=== PATIENT | male | born 1975 | race Caucasian/White ===

== ENCOUNTER → 2022-07-09 01:05 | Outpatient (CLI) | payer MEDICAID, SELFPAY ==
--- NOTE | 2022-07-09 07:00 | DI.RAD_ITS ---
Exam(s) XR CHEST 2V PA LATERAL EXAM: XR CHEST 2V PA LATERAL CLINICAL HISTORY: Worsening COUGH, multiple meds not working, asthma/smokeR,R05.9 TECHNIQUE: 2D digital imaging was performed. COMPARISON: No exams were available for comparison FINDINGS: HEART: Normal size. Aorta: Not dilated. PULMONARY VASCULATURE: Normal. LUNGS: Clear. PLEURAL SPACE: No pleural effusion or pneumothorax. BONE:Unremarkable for age. IMPRESSION: No acute abnormality. DATA REPOSITORY: RADIATION DOSE DELIVERED:
== END ==
PROVIDERS: PCP Nurse Practitioner Family; Visit Provider Nurse Practitioner Family
DX: R05.9 Cough, unspecified (principal)
CPT/HCPCS: 71046

== ENCOUNTER 2022-09-20 00:37 | Emergency (ER) | payer MEDICAID, SELFPAY ==
[2022-09-20 00:41] VITALS: BP 144/96; PULSE 113; RESP 20; O2SAT 96
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
== END 2022-09-20 01:27 | disposition home or self-care (01) ==
PROVIDERS: Emergency Provider Student in an Organized Health Care Education/Training Program; PCP Nurse Practitioner Family
DX: S01.112A Laceration without foreign body of left eyelid and periocular area, initial encounter (principal); J45.909 Unspecified asthma, uncomplicated; Z79.51 Long term (current) use of inhaled steroids; X58.XXXA Exposure to other specified factors, initial encounter
CPT/HCPCS: 12013; 99284; 70450; 70486; 99282

== ENCOUNTER 2022-10-07 01:16 | Outpatient (CLI) | payer MEDICAID, SELFPAY ==
--- NOTE | 2022-10-07 06:45 | DI.US_ITS ---
Exam(s) US RENAL EXAM: US RENAL CLINICAL HISTORY: Worsening symptoms,kidney stone, n20.0. TECHNIQUE: Dobbs scale, color and spectral Doppler were used. COMPARISON: There are no priors for comparison. FINDINGS: Renal size in cm: Right: 9.5. Left: 9.3. Echogenicity: Normal. Hydronephrosis: No. Cyst or mass: No. Nephrolithiasis: No. Other findings: None. Bladder:Normal. Ureteral jets: Right: Visualized and unremarkable. Left: Visualized and unremarkable. Prevoid vol:489 cc Postvoid vol:0 cc Prostate: 34 cc Renal color flow: Symmetric and within normal limits. IMPRESSION: Unremarkable examination. DATA REPOSITORY:
== END 2022-10-07 01:36 ==
LOC: DI 01:16
PROVIDERS: PCP Nurse Practitioner Family; Visit Provider Nurse Practitioner Family
DX: N20.0 Calculus of kidney (principal)
CPT/HCPCS: 76770

== ENCOUNTER 2023-01-30 20:07 | Emergency (ER) | payer MEDICAID, SELFPAY ==
[2023-01-30 20:11] VITALS: BP 122/85; PULSE 112; RESP 24; TEMP 36.9; O2SAT 95
--- NOTE | 2023-01-30 20:14 | W.ED.GENAD ---
Discharge Plan Disposition Patient Disposition: Home Condition: Improving Discharge Details Clinical Impression: Scombroid fish poisoning Primary Care Provider: Jonathan Marshall ED Provider: Gucci Kevin Home Meds and New Rx's Prescriptions: Continued epinephrine 0.3 mg/0.3 mL auto-injector 0.3 mg IM ONCE Qty: 2 1RF Rx Instructions: as a single dose; may repeat once Dulera 100-5 mcg/actuation HFA aerosol inhaler 2 puff inhalation BID Qty: 13 3RF sertraline 100 mg tablet 100 mg PO DAILY Qty: 90 3RF albuterol sulfate [Ventolin HFA] 90 mcg/actuation HFA aerosol inhaler 2 puff inhalation Q6H PRN (Reason: shortness of breath or wheezing) Qty: 8.5 3RF Discharge Instructions Additional Instructions: This is likely related to fish that was present in the clam chowder and is called scombroid poisoning. You may need another couple of doses of diphenhydramine but otherwise should do fine. This is not a true allergic reaction to fish. Please follow-up with primary care next week if you are not improving. Return to the ED for any difficulty breathing, throat swelling, chest pain, abdominal pain, vomiting, other concerns. Medical Decision Making Patient presenting to ED with allergic type reaction which only involves the upper body and face. Does seem improved after diphenhydramine. Still does not feel right but headache has improved, hives have resolved, no longer lightheaded and hot. Symptoms seem to have occurred after eating homemade clam chowder. does not have symptoms but ate much less than her did. Unsure whether there was fish in this claim chowder or not. I suspect that this is scombroid poisoning more than allergic reaction. Will give fluids and Zofran, check basic labs, observe. Patient's labs mostly unremarkable, potassium a little low. Patient's erythema has completely resolved. He is sleeping and feels fine at this point. Vital signs are normal. has not been able to speak to the individual who actually made the clam chowder but other individuals who were there do think there was fish in it. At this point I think the patient is safe for discharge home. May need couple more doses of Benadryl and have discussed this with . Return precautions provided. Lab Data Lab results reviewed: Yes I reviewed the patient's lab results. HPI General Mode of arrival: ambulatory. Date/Time Provider Initiated Documentation: 01/30/23 20:14. Limitations to Documentation: no limitations. Information obtained by: patient and family. HPI Narrative: Patient presents to the ED with acute onset of flushing, redness, hives, headache, nausea after attending a picnic today. He had to leave abruptly because he felt so unwell. did give him Benadryl and he is actually doing better. There was nothing at the picnic that he ate that he has not ate before. The only potential unusual thing was homemade clam chowder. Patient does have anaphylaxis to bee stings but denies being stung and denies any respiratory symptoms. He felt palpitations, lightheadedness, and reports clear hives on the torso and face. Related Data Home Medications Medication Instructions Recorded Confirmed epinephrine 0.3 mg/0.3 mL 0.3 mg (0.3 mL) IM ONCE #2 ea 02/16/22 01/30/23 injection, auto-injector mometasone-formoterol HFA 100 2 puff inhalation BID #13 grams 06/03/22 01/30/23 mcg-5 mcg/actuation aerosol inhaler (Dulera) sertraline 100 mg tablet 100 mg PO DAILY #90 tabs 08/13/22 01/30/23 albuterol sulfate 90 mcg/actuation 2 puff inhalation Q6H PRN 01/25/23 01/30/23 aerosol inhaler (Ventolin HFA) shortness of breath or wheezing #8.5 grams Previous Rx's Medication Instructions Recorded epinephrine 0.3 mg/0.3 mL 0.3 mg (0.3 mL) IM ONCE #2 ea 02/16/22 injection, auto-injector mometasone-formoterol HFA 100 2 puff inhalation BID #13 grams 06/03/22 mcg-5 mcg/actuation aerosol inhaler (Dulera) sertraline 100 mg tablet 100 mg PO DAILY #90 tabs 08/13/22 albuterol sulfate 90 mcg/actuation 2 puff inhalation Q6H PRN 01/25/23 aerosol inhaler (Ventolin HFA) shortness of breath or wheezing #8.5 grams Allergies Allergy/AdvReac Type Severity Reaction Status Date / Time honey bee venom AdvReac Intermediate Uncoded 01/30/23 20:10 General Stated Complaint: Allergic SILVIA: 3 Review of Systems Narrative: Per HPI PFSH All Active Problems (Updated 01/30/23 @ 21:45 by Gucci Kevin MD) Scombroid fish poisoning (Acute) Finger pain (Acute) Lower urinary tract symptoms (LUTS) (Acute) Right shoulder pain (Acute) Tachycardia, paroxysmal (Acute) Shortness of breath on exertion (Acute) Smoker (Acute) 2 pack/day Lower back pain (Acute) Medical History Depression Kidney stone Family History Mother No problems noted. Father , 67 Cancer Heart disease Sister Cancer Depression Daughter Depression Asthma Daughter Depression Maternal Grandfather , 69 Stroke Paternal Grandfather , 50's Stroke Maternal Grandmother , 80's No problems noted. Paternal Grandmother , 30's No problems noted. Social History Smoking/Tobacco Use Status: Current every day Tobacco Type: cigarettes Tobacco: How many years used: 25 Quit status: not considering quitting Second Hand Exposure: Yes Smoking risk assessment performed?: Yes Alcohol Intake: current Alcohol Intake frequency: a few times a week Alcohol type: beer Drug use: Never Substance use type: does not use Caregiver/Support person: Yes Household members: spouse and children Housing: house Communication Needs: Hard of Hearing Do you need help understanding health information?: Often Pets and animals: Yes Pets and animals: dog(s) Sexually active: Yes Do you think of yourself as: straight/heterosexual Current gender identity: male What is your relationship status?: How often do you talk on the phone with friends or family?: three or more times per week How often do you get together with friends or relatives?: three or more times per week How often do you attend nondenominational or mu-ism services?: decline to answer Do you belong to any clubs or organized social groups?: no Panel score (0-1 are the most socially isolated patients): 2 What type of physical activity do you participate in: walking Duration: > 90 minutes/day Frequency: daily Hodan/Congregational: No preference Seatbelt use: never Helmet use: Yes Helmet use: always 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 HEENT: NC/AT. Normal facial exam. Normal OP. Eyes: Normal conjunctiva and sclera. Neck: Supple. Trachea midline. Lungs: Normal respiratory effort. Lungs are clear. Cor: RRR without murmur/gallop. Good radial pulses. GI: Soft. NT/ND. No guarding or rebound. Neuro: A+O x 3. Normal speech, mentation, gait. Cranial nerves II - XII grossly intact. No gross motor or sensory deficit. Ext: No C/C/E. Skin: Warm and dry with blanching non-tender erythema involving upper torso, neck, face. No hives at this time. Course Vital Signs Vital signs: Vital Signs Temperature 98.4 F 01/30/23 20:11 Pulse 112 H 01/30/23 20:11 Respiratory Rate 24 01/30/23 20:11 Blood Pressure 122/85 01/30/23 20:11 Pulse Oximetry 95 01/30/23 20:11 Temperature 98.4 F 01/30/23 20:11 Temperature Source Temporal Artery Scan 01/30/23 20:11 Pulse 112 H 01/30/23 20:11 Respiratory Rate 24 01/30/23 20:11 Blood Pressure 122/85 01/30/23 20:11 Blood Pressure Position Sitting 01/30/23 20:11 Pulse Oximetry 95 01/30/23 20:11 Pain Level 10 01/30/23 20:11 Comment HEADACHE 01/30/23 20:11
[2023-01-30] MEDS: Famotidine 20 MG/2 ML VIAL IVP (20:50)
[2023-01-30] MEDS: Normal Saline 1,000 ML 1000 ML IV (20:51)
[2023-01-30] MEDS: Ondansetron 4 MG/2 ML VIAL IVP (20:51)
[2023-01-30 20:53] LABS: Abs Immature Grans 0.04 10^3/uL (0.0-0.06); Absolute Basophil Count 0.05 10^3/uL (0.0-0.2); Absolute Eosinophil Count 0.19 10^3/uL (0.0-0.7); Absolute Lymphocyte Count 3.28 10^3/uL (1.2-3.4); Absolute Monocyte Count 0.65 10^3/uL (0.1-0.8); Absolute Neutrophil Count 6.25 10^3/uL (1.2-6.7); Basophils % 0.5; Eosinophils % 1.8; HCT 45.6 % (40.0-50.0); HGB 15.7 g/dL (13.5-17.5); Immature Grans % 0.4; Lymphocytes % 31.4; MCH 31.6 pg (27.0-33.0); MCHC 34.4 % (32.0-36.0); MCV 92 fL (80-95); MPV 10.1 fL (8.0-11.0); Monocytes % 6.2; Neutrophils % 59.7; Platelet Count 287 10^3/uL (130-400); RBC 4.97 10^6/uL (4.36-5.78); RDW 13.3 % (11.8-14.1); RDW-SD 45.8 fL; WBC 10.46 10^3/uL (4.4-10.8)
[2023-01-30 21:03] LABS: Anion Gap 11.8 mmol/L (3-11); BUN 11 mg/dL (7-18); CO2 25.2 mmol/L (21.0-32.0); Calcium 9.1 mg/dL (8.5-10.1); Chloride 102 mmol/L (98-107); Glucose 83 mg/dL (74-106); Potassium 3.1 mmol/L (3.5-5.1); Sodium 139 mmol/L (136-145)
[2023-01-30 21:47] VITALS: BP 107/88; PULSE 81; RESP 16; O2SAT 97
== END 2023-01-30 21:52 | disposition home or self-care (01) ==
PROVIDERS: Emergency Provider Emergency Medicine; PCP Nurse Practitioner Family
DX: T61.11XA Scombroid fish poisoning, accidental (unintentional), initial encounter (principal); L50.0 Allergic urticaria; R06.02 Shortness of breath; R11.0 Nausea; F17.210 Nicotine dependence, cigarettes, uncomplicated
CPT/HCPCS: 80048; 96360; 99283; 85025; J2405

== ENCOUNTER 2023-02-14 19:46 | Emergency (ER) | payer MEDICAID, SELFPAY ==
[2023-02-14 19:53] VITALS: BP 141/90; PULSE 81; RESP 18; TEMP 36.6; O2SAT 98
--- NOTE | 2023-02-14 20:30 | DI.CT_ITS ---
Exam(s) CT ABDOMEN PELVIS WO EXAM: CT ABDOMEN PELVIS WO CLINICAL HISTORY: diff urinating, hx of stones. TECHNIQUE: Imaging Protocol: Axial computed tomography images with coronal and sagittal reformatted images were created and reviewed CONTRAST MATERIAL: Intravenous: none Oral: None COMPARISON: No exams were available for comparison FINDINGS: VISUALIZED LUNG BASES: No nodules nor pleural effusions evident. ABDOMEN: There is no ascites. LIVER: There are no obvious focal hepatic lesions evident of this noninfused study. GALLBLADDER/BILIARY: No obvious gallbladder pathology. CBD is not dilated. PANCREAS: No evidence of pancreatic mass nor dilatation of the pancreatic duct. SPLEEN: Spleen is not enlarged. No obvious intrasplenic lesions. ADRENALS: Small calcification noted in the medial limb of the left adrenal gland. No mass at this le hermelindo. No other adrenal findings. KIDNEYS:No cysts evident. No solid renal masses. No calculi nor hydronephrosis.. Ureters are not dil ated. No abnormality in the bladder. ABDOMINAL AORTA: Abdominal aorta is not enlarged. LYMPH NODES: There is no retroperitoneal nor paraaortic adenopathy. ABDOMINAL WALL: No evidence of significant anterior abdominal wall nor inguinal hernia. GI: There is no evidence of bowel obstruction, free air, nor abscess. PELVIS: LYMPH NODES: There is no intrapelvic nor inguinal adenopathy. GI: No evidence of appendicitis.No evidence of sigmoid diverticulitis. URINARY BLADDER: No calculi nor obvious masses evident REPRODUCTIVE: Prostate size upper normal. Seminal vesicles unremarkable OSSEOUS: No significant osseous lesions. No fractures. Some degenerative disc disease noted L5-S1. IMPRESSION: 1. No evidence of urinary tract calculi nor hydronephrosis. 2. Prostate size upper normal. No obvious abnormality in the urinary bladder. 3. No obvious acute findings. RADIATION DOSE DELIVERED: 806.65mGy.cm Total DLP DATA REPOSITORY: All CT scans at this facility are submitted to the National Radiology Data Registry (NRDR) Dose Index Registry (DIR) with the [employer] [place] [place] [employer] (ACR). RADIATION OPTIMIZATION: All CT scans at this facility use at least one of these dose optimization te chniques: automated exposure control; mA and/or kV adjustment per patient size (includes targeted exa ms where dose is matched to clinical indication); or iterative reconstruction.
--- NOTE | 2023-02-14 20:37 | ED.GENADUL_ITS ---
Discharge Plan Disposition Patient Disposition: Home Condition: Good Discharge Details Clinical Impression: Lower urinary tract symptoms Primary Care Provider: Jonathan Marshall ED Provider: Carloz Clayton Home Meds and New Rx's Prescriptions: New tamsulosin [Flomax] 0.4 mg capsule 0.4 mg PO DAILY Qty: 20 0RF No Action epinephrine 0.3 mg/0.3 mL auto-injector 0.3 mg IM ONCE Qty: 2 1RF Rx Instructions: as a single dose; may repeat once Dulera 100-5 mcg/actuation HFA aerosol inhaler 2 puff inhalation BID Qty: 13 3RF sertraline 100 mg tablet 100 mg PO DAILY Qty: 90 3RF albuterol sulfate [Ventolin HFA] 90 mcg/actuation HFA aerosol inhaler 2 puff inhalation Q6H PRN (Reason: shortness of breath or wheezing) Qty: 8.5 3RF Discharge Instructions Instructions: Kidney Stones (ED) Additional Instructions: At this time your work-up thankfully shows no evidence of large stone, or other significant abnormality. As we discussed together please continue to hydrate we ll. Take the Flomax as directed. Take Tylenol and Motrin if your pain recurs. Please continue to strain your urine and look for any stones. If you do find 1 please save it to be analyzed. If you notice any worsening of your symptoms, or any new symptoms such as vomiting, diarrhea, fever, chills, shortness of breath, chest pain, numbness, weakness, or fainting , please return immediately to the emergency department for reevaluation. Please follow up with your primary care provider as soon as possible for reassessment and reevaluation. As always, it was a pleasure participating in your medical care today. 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 Patient states that over the last few years he developed symptoms of urgency, and pain at the tip of his penis, and feeling like he cannot urinate. This will usually go on for few days and then he eventually passes a kidney stone. Those symptoms have again begun today. Symptoms started 3 to 4 days ago. He does admit to increased mucus production when he urinates at this time. He denies any blood in his urine. He denies any flank pain. He denies any fever or chills. No other complaints at this time. No other modifying factors. Exam demonstrates no abdominal or flank tenderness. No suprapubic tenderness. No penile or testicular tenderness. Normal cremasteric reflex. No discharge from the urethral meatus. Differential includes BPH, kidney stone, less likely STD. He has no history of STDs. We will test for gonorrhea and chlamydia. We will test the UA, get a CAT scan to rule out stone, monitor closely and reassess. 10:[address] scan negative for any abnormality. Urinalysis negative, laboratory work-up stable. Patient feels well. Patient has urinated here without difficulty. At this time I do feel that the patient is stable for discharge. No evidence of infection large stone or other abnormality. This may be a uric acid stone Visualized. We will give Flomax for home use and recommend continued straining. I have extensively reviewed the treatment plan and discharge instructions with the patient. I have addressed all patient concerns at this time. The patient was made aware of what symptoms to monitor for that would warrant a return to the emergency department. Discussed the plan with the patient, they demonstrate verbal understanding and agreement with our assessment and plan at this time. The documentation in this chart was dictated using [employer] dictation software. Please excuse any dictation errors. FINDINGS: Liver: Normal. No mass. Gallbladder and bile ducts: Normal. No calcified stones. No ductal dilation. Pancreas: Normal. No ductal dilation. Spleen: Normal. No splenomegaly. Adrenal glands: Normal. No mass. Kidneys and ureters: Normal. No hydronephrosis. Stomach and bowel: Unremarkable. No obstruction. No mucosal thickening. Appendix: No evidence of appendicitis. Intraperitoneal space: Unremarkable. No free air. No significant fluid collection. Vasculature: Unremarkable. No abdominal aortic aneurysm. Lymph nodes: Unremarkable. No enlarged lymph nodes. Urinary bladder: Unremarkable as visualized. Reproductive: Unremarkable as visualized. Bones/joints: Unremarkable. No acute fracture. Soft tissues: Unremarkable IMPRESSION: No acute abnormality seen to account for symptoms. Thank you for allowing us to participate in the care of your patient. Dictated and Authenticated by: Sharee Butler MD 02/14/2023 9:40 PM Eastern Time ([place] & [place]) HPI General Date/Time Provider Initiated Documentation: 02/14/23 20:13 . HPI Narrative: 47-year-old male with a past medical history of reactive airway disease, previous kidney stones, lower urinary tract symptoms, who presents today for evaluation of genital pain. Patient states that over the last few years he developed symptoms of urgency, and pain at the tip of his penis, and feeling like he cannot urinate. This will usually go on for few days and then he eventually passes a kidney stone. Those symptoms have again begun today. Symptoms started 3 to 4 days ago. He does admit to increased mucus production when he urinates at this time. He denies any blood in his urine. He denies any flank pain. He denies any fever or chills. No other complaints at this time. No other modifying factors. Related Data Home Medications Medication Instructions Recorded Confirmed epinephrine 0.3 mg/0.3 mL 0.3 mg (0.3 mL) IM ONCE #2 ea 02/16/22 02/14/23 injection, auto-injector mometasone-formoterol HFA 100 2 puff inhalation BID #13 grams 06/03/22 02/14/23 mcg-5 mcg/actuation aerosol inhaler (Dulera) sertraline 100 mg tablet 100 mg PO DAILY #90 tabs 08/13/22 02/14/23 albuterol sulfate 90 mcg/actuation 2 puff inhalation Q6H PRN 01/25/23 02/14/23 aerosol inhaler (Ventolin HFA) shortness of breath or wheezing #8.5 grams tamsulosin 0.4 mg capsule (Flomax) 0.4 mg PO DAILY #20 caps 02/14/23 Previous Rx's Medication Instructions Recorded epinephrine 0.3 mg/0.3 mL 0.3 mg (0.3 mL) IM ONCE #2 ea 02/16/22 injection, auto-injector mometasone-formoterol HFA 100 2 puff inhalation BID #13 grams 06/03/22 mcg-5 mcg/actuation aerosol inhaler (Dulera) sertraline 100 mg tablet 100 mg PO DAILY #90 tabs 08/13/22 albuterol sulfate 90 mcg/actuation 2 puff inhalation Q6H PRN 01/25/23 aerosol inhaler (Ventolin HFA) shortness of breath or wheezing #8.5 grams tamsulosin 0.4 mg capsule (Flomax) 0.4 mg PO DAILY #20 caps 02/14/23 Allergies Allergy/AdvReac Type Severity Reaction Status Date / Time honey bee venom AdvReac Intermediate Uncoded 02/14/23 19:56 General Stated Complaint: Urinary SILVIA: 3 Review of Systems All systems reviewed & are unremarkable except as noted in HPI and below PFSH All Active Problems (Updated 02/14/23 @ 21:49 by Carloz Clayton DO) Lower urinary tract symptoms (Acute) Left knee injury (Acute) Scombroid fish poisoning (Acute) Finger pain (Acute) Lower urinary tract symptoms (LUTS) (Acute) Right shoulder pain (Acute) Tachycardia, paroxysmal (Acute) Shortness of breath on exertion (Acute) Smoker (Acute) 2 pack/day Lower back pain (Acute) Medical History Depression Kidney stone Family History Mother No problems noted. Father , 67 Cancer Heart disease Sister Cancer Depression Daughter Depression Asthma Daughter Depression Maternal Grandfather , 69 Stroke Paternal Grandfather , 50's Stroke Maternal Grandmother , 80's No problems noted. Paternal Grandmother , 30's No problems noted. Social History Smoking/Tobacco Use Status: Current every day Tobacco Type: cigarettes Tobacco: How many years used: 25 Quit status: not considering quitting Second Hand Exposure: Yes Smoking risk assessment performed?: Yes Alcohol Intake: current Alcohol Intake frequency: a few times a week Alcohol type: beer Drug use: Never Substance use type: does not use Caregiver/Support person: Yes Household members: spouse and children Housing: house Communication Needs: Hard of Hearing Do you need help understanding health information?: Often Pets and animals: Yes Pets and animals: dog(s) Sexually active: Yes Do you think of yourself as: straight/heterosexual Current gender identity: male What is your relationship status?: How often do you talk on the phone with friends or family?: three or more times per week How often do you get together with friends or relatives?: three or more times per week How often do you attend scientology or anglican services?: decline to answer Do you belong to any clubs or organized social groups?: no Panel score (0-1 are the most socially isolated patients): 2 What type of physical activity do you participate in: walking Duration: > 90 minutes/day Frequency: daily Hodan/Lutheran: No preference Seatbelt use: never Helmet use: Yes Helmet use: always Drive intox or ride 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 3.ENT: Atraumatic external nose and ears. Moist MM. Neck: Symmetric, trachea midline, No thyromegaly. 4.CVS: +S1/S2, No murmurs or gallops. Peripheral pulses 2+ and equal in all extremities. Brisk capillary refill in all extremities. 5.RESP: Unlabored respiratory effort. Clear to auscultation bilaterally. No wheezes rales or rhonchi 6.GI: Soft, Nontender/Nondistended, No hepatosplenomegaly. No guarding or rebound. No significant suprapubic tenderness. Genital exam demonstrates unremarkable male genitalia. No testicular tenderness, no penile shaft or head tenderness. No discharge purulence or mucus coming from the urethral meatus. No erythema. 7.MSK: Normocephalic/Atraumatic, Extremities w/o deformity or ttp No cyanosis or clubbing, Normal movement of all extremities 8.Skin: Warm, Dry. No rashes or lesions. 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 Sensation grossly intact, no focal neurologic deficits. 10.Psych: (AAO) x3. Appropriate mood and affect Course Vital Signs Vital signs: Vital Signs Temperature 36.6 C 02/14/23 19:53 Pulse 81 02/14/23 19:53 Respiratory Rate 18 02/14/23 19:53 Blood Pressure 141/90 H 02/14/23 19:53 Pulse Oximetry 98 02/14/23 19:53 Temperature 36.6 C 02/14/23 19:53 Temperature Source Skin 02/14/23 19:53 Pulse 81 02/14/23 19:53 Respiratory Rate 18 02/14/23 19:53 Blood Pressure 141/90 H 02/14/23 19:53 Blood Pressure Position Sitting 02/14/23 19:53 Pulse Oximetry 98 02/14/23 19:53 Oxygen Delivery Method Room Air 02/14/23 19:53 Oxygen Flow Rate 0 02/14/23 19:53 Pain Level 10 02/14/23 19:53 Comment tip of penis 02/14/23 19:53
[2023-02-14] MEDS: Normal Saline 1,000 ML 1000 ML IV (20:50)
[2023-02-14 20:54] LABS: Abs Immature Grans 0.13 10^3/uL (0.0-0.06); Absolute Basophil Count 0.07 10^3/uL (0.0-0.2); Absolute Neutrophil Count 7.45 10^3/uL (1.2-6.7); Basophils % 0.6; Eosinophils % 2.3; HCT 46.5 % (40.0-50.0); Lymphocytes % 30.2; MCH 31.8 pg (27.0-33.0); MCHC 34.4 % (32.0-36.0); MCV 92 fL (80-95); MPV 9.5 fL (8.0-11.0); Neutrophils % 59.9; Platelet Count 320 10^3/uL (130-400); RBC 5.03 10^6/uL (4.36-5.78); RDW 13.3 % (11.8-14.1); RDW-SD 45.1 fL; WBC 12.43 10^3/uL (4.4-10.8)
[2023-02-14 20:56] LABS: Bilirubin Negative (Negative); Blood Negative (Negative); Clarity Clear (Clear); Glucose Negative (Negative); Ketones Negative (Negative); Leukocyte Esterase Negative (Negative); Nitrite Negative (Negative); Specific Gravity <= 1.005 (1.005-1.025); Urobilinogen 0.2 mg/dL (Up to 0.2); pH 5.5 (5-8)
[2023-02-14 20:59] LABS: Absolute Eosinophil Count 0.29 10^3/uL (0.0-0.7); Absolute Lymphocyte Count 3.75 10^3/uL (1.2-3.4); Absolute Monocyte Count 0.75 10^3/uL (0.1-0.8)
[2023-02-14] MEDS: Tamsulosin 0.4 MG CAPCR PO (20:59)
[2023-02-14 21:36] LABS: ALT 21 U/L (16-63); AST 16 U/L (15-37); Albumin 4.1 g/dL (3.4-5.0); Alkaline Phosphatase 79 U/L (46-116); Anion Gap 11.8 mmol/L (3-11); BUN 7 mg/dL (7-18); Bilirubin, Total 0.4 mg/dL (0.2-1.0); CO2 26.2 mmol/L (21.0-32.0); CREATININE 0.8 mg/dL (0.70-1.30); Calcium 8.7 mg/dL (8.5-10.1); Chloride 95 mmol/L (98-107); Estimated GFR 110.53 (mL/min/1.73m2); Glucose 93 mg/dL (74-106); Sodium 133 mmol/L (136-145); Total Protein 7.5 g/dL (6.4-8.2)
--- NOTE | 2023-02-14 21:40 | DI.VRAD_ITS ---
PROCEDURE INFORMATION: Exam: CT Abdomen And Pelvis Without Contrast Exam date and time: 02/14/2023 9:10 PM Age: 47 years old Clinical indication: Patient HX: Difficulty urinating, HX of stones TECHNIQUE: Imaging protocol: Computed tomography of the abdomen and pelvis without contrast. Radiation optimization: All CT scans at this facility use at least one of these dose optimization techniques: automated exposure control; mA and/or kV adjustment per patient size (includes targeted exams where dose is matched to clinical indication); or iterative reconstruction. COMPARISON: US RENAL 10/07/2022 7:14 AM FINDINGS: Liver: Normal. No mass. Gallbladder and bile ducts: Normal. No calcified stones. No ductal dilation. Pancreas: Normal. No ductal dilation. Spleen: Normal. No splenomegaly. Adrenal glands: Normal. No mass. Kidneys and ureters: Normal. No hydronephrosis. Stomach and bowel: Unremarkable. No obstruction. No mucosal thickening. Appendix: No evidence of appendicitis. Intraperitoneal space: Unremarkable. No free air. No significant fluid collection. Vasculature: Unremarkable. No abdominal aortic aneurysm. Lymph nodes: Unremarkable. No enlarged lymph nodes. Urinary bladder: Unremarkable as visualized. Reproductive: Unremarkable as visualized. Bones/joints: Unremarkable. No acute fracture. Soft tissues: Unremarkable. IMPRESSION: No acute abnormality seen to account for symptoms. Dictated and Authenticated by: Sharee Butler MD. Ordering:CHANTELLE Carty MD
[2023-02-14 22:14] VITALS: BP 136/88; PULSE 80; RESP 16; O2SAT 98
[2023-02-16 14:10] LABS: Chlamydia Result Negative (Negative); GC Result Negative (Negative)
== END 2023-02-14 22:14 | disposition home or self-care (01) ==
PROVIDERS: Emergency Provider Student in an Organized Health Care Education/Training Program; PCP Nurse Practitioner Family
DX: N39.0 Urinary tract infection, site not specified (principal); F17.210 Nicotine dependence, cigarettes, uncomplicated; Z87.442 Personal history of urinary calculi
CPT/HCPCS: 36415; 80053; 87491; 87591; 96360; 99284; 74176; 81003; 85025; 99283

== ENCOUNTER 2023-02-16 21:08 | Outpatient (REF) | payer MEDICAID, SELFPAY ==
[2023-02-24 14:04] LABS: Source: Kidney
== END 2023-02-16 21:09 | disposition home or self-care (01) ==
LOC: LBN 21:08
PROVIDERS: PCP Nurse Practitioner Family; Visit Provider Nurse Practitioner Family
DX: N20.0 Calculus of kidney (principal)
CPT/HCPCS: 82365

== ENCOUNTER → 2023-03-02 01:03 | Outpatient (CLI) | payer MEDICAID, SELFPAY ==
--- NOTE | 2023-03-02 07:45 | DI.MRI_ITS ---
Exam(s) MR LOWER JOINT LT WO EXAM: MR LOWER JOINT LT WO CLINICAL HISTORY: Internal derangement of lt knee, M23.92. TECHNIQUE: Multiplanar multisequence MRI was performed. COMPARISON: No exams were available for comparison FINDINGS: BONES: There is no fracture or contusion pattern. JOINTS: Small joint effusion is present. Articular cartilage: Patellofemoral joint: Articular cartilage is unremarkable. Medial femoral tibial joint: Articular cartilage is unremarkable. Lateral femoral tibial joint: Articular cartilage is unremarkable. TENDONS: Extensor mechanism: Unremarkable. Medial retinaculum: Unremarkable. Lateral retinaculum: Unremarkable. Popliteus: Unremarkable. Edema in the semimembranosus tendon near the insertion on the tibia. MUSCLES: Unremarkable. MENISCI: The medial meniscus shows a linear area of high signal in the posterior horn consistent with a horizontal tear.. The lateral meniscus is unremarkable. SOFT TISSUES: Unremarkable. LIGAMENTS: Anterior Cruciate: Unremarkable. Posterior Cruciate: Unremarkable. Medial Collateral:Unremarkable. Lateral Collateral: Unremarkable. IMPRESSION: Horizontal tear of the posterior horn of the medial meniscus. Tendinosis versus partial tear in the semimembranosus tendon. DATA REPOSITORY:
== END ==
PROVIDERS: PCP Nurse Practitioner Family; Visit Provider Physician Assistant
DX: M23.222 Derangement of posterior horn of medial meniscus due to old tear or injury, left knee (principal)
CPT/HCPCS: 73721

== ENCOUNTER → 2023-03-26 00:42 | Outpatient (CLI) | payer MEDICAID, SELFPAY ==
--- NOTE | 2023-03-26 | DI.MRI_ITS ---
Exam(s) MR UPPER JOINT LT WO EXAM: MR UPPER JOINT LT WO CLINICAL HISTORY: LT SHOULDER PAIN, M25.512,? ROTATOR CUFF TEAR. TECHNIQUE: Multiplanar multisequence MRI was performed. COMPARISON: No exams were available for comparison FINDINGS: BONES: There is no fracture or contusion pattern. JOINTS: Mild degenerative changes seen at the acromioclavicular joint. The glenohumeral joint is nor mal. TENDONS: Supraspinatus: There is mild hyperintense signal seen within the substance of the supraspinatus tendo n which may represent a partial tear versus tendinosis. Infraspinatus: Unremarkable. Subscapularis: Hyperintense signal seen at the insertion site of the subscapularis tendon onto the le sser tuberosity. (Series 3, image 9). This may represent a partial tear versus tendinosis. Teres Minor: Unremarkable. Biceps and Fulda: Unremarkable. MUSCLES: Unremarkable. GLENOID LABRUM: Unremarkable on this noncontrast examination. SOFT TISSUES: Unremarkable. LIGAMENTS: Unremarkable. OTHER: There is a small amount of fluid in the subdeltoid bursa. IMPRESSION: 1. Tendinosis versus partial tears involving the subscapularis and supraspinatus tendons. No evidenc e of a full-thickness rotator cuff tear. 2. Small amount of fluid in the subdeltoid bursa. 3. Mild degenerative changes seen at the acromioclavicular joint. DATA REPOSITORY:
== END ==
PROVIDERS: PCP Nurse Practitioner Family; Visit Provider Physician Assistant
DX: M75.112 Incomplete rotator cuff tear or rupture of left shoulder, not specified as traumatic (principal); M19.012 Primary osteoarthritis, left shoulder
CPT/HCPCS: 73221

== ENCOUNTER 2023-07-14 11:56 | Outpatient (CLI) | payer MEDICAID, SELFPAY ==
[2023-07-14 18:54] LABS: PSA, Screening 0.9 ng/mL (<=2.5)
== END 2023-07-14 11:57 | disposition home or self-care (01) ==
LOC: LBO 11:57
PROVIDERS: PCP Nurse Practitioner Family; Visit Provider Nurse Practitioner Family
DX: R39.89 Other symptoms and signs involving the genitourinary system (principal); Z12.5 Encounter for screening for malignant neoplasm of prostate
CPT/HCPCS: 36415; 84153

== ENCOUNTER 2024-02-05 00:05 | Emergency (ER) | payer MEDICAID, SELFPAY ==
--- NOTE | 2024-02-05 | DI.RAD_ITS ---
Exam(s) XR WRIST LT COMPLETE EXAM: XR WRIST LT COMPLETE CLINICAL HISTORY: fall, forearm deformity. TECHNIQUE: 2D digital imaging was performed. COMPARISON: No exams were available for comparison FINDINGS: 3 views No evidence of acute fracture nor carpal dislocation nor significant ulnar variance. Scaphoid and sc apholunate distance normal. No obvious degenerative changes. No radiopaque foreign bodies. IMPRESSION: No acute osseous findings in the wrist. DATA REPOSITORY: RADIATION DOSE DELIVERED:
--- NOTE | 2024-02-05 | DI.RAD_ITS ---
Exam(s) XR ELBOW LT COMPLETE EXAM: XR ELBOW LT COMPLETE CLINICAL HISTORY: fall, forearm deformity. TECHNIQUE: 2D digital imaging was performed. COMPARISON: No exams were available for comparison FINDINGS: 3 views No evidence of acute fracture, joint effusion, nor swelling of the olecranon bursa. Radial head and neck appear unremarkable. Epicondyles unremarkable. No degenerative changes nor loose intra-articul ar bodies. IMPRESSION: No significant osseous findings in the elbow. DATA REPOSITORY: RADIATION DOSE DELIVERED:
--- NOTE | 2024-02-05 | DI.RAD_ITS ---
Exam(s) XR FOREARM LT EXAM: XR FOREARM LT CLINICAL HISTORY: fall, forearm deformity. TECHNIQUE: 2D digital imaging was performed. COMPARISON: No exams were available for comparison FINDINGS: Two views No evidence of fracture of the radius and ulna. No significant ulnar variance. Bone density normal. No osseous lesions. No abnormal soft tissue findings. No foreign bodies evident IMPRESSION: No significant osseous findings in the forearm bones. DATA REPOSITORY: RADIATION DOSE DELIVERED:
[2024-02-05 00:07] VITALS: BP 144/76; PULSE 87; RESP 18; TEMP 36.2; O2SAT 97
--- NOTE | 2024-02-05 00:19 | ED.GENADUL_ITS ---
Discharge Plan Disposition Patient Disposition: Eloped Discharge Details Clinical Impression: Arm pain, Fall Primary Care Provider: Jonathan Marshall ED Provider: Barbara Schwartz Home Meds and New Rx's Prescriptions: No Action epinephrine 0.3 mg/0.3 mL auto-injector 0.3 mg IM ONCE Qty: 2 1RF Rx Instructions: as a single dose; may repeat once albuterol sulfate [Ventolin HFA] 90 mcg/actuation HFA aerosol inhaler 2 puff inhalation Q6H PRN (Reason: shortness of breath or wheezing) Qty: 8.5 3RF HPI General Mode of arrival: ambulatory . Date/Time Provider Initiated Documentation: 02/05/24 00:11 . Limitations to Documentation: no limitations . Information obtained by: patient . HPI Narrative: 48yo M with hx of asthma presenting for left arm pain after a fall. Was standing on the back of a trailer, fell, hit his left forearm on the side rail. Pain to his left forearm; denies pain or injury elsewhere. Did not strike his head. No numbness, tingling, or weakness to arm. ETOH consumption tonight. Otherwise in his usual state of health. Related Data Home Medications ?Medication ?Instructions ?Recorded ?Confirmed epinephrine 0.3 mg/0.3 mL 0.3 mg (0.3 mL) IM ONCE #2 ea 02/16/22 02/05/24 injection, auto-injector albuterol sulfate 90 mcg/actuation 2 puff inhalation Q6H PRN 09/27/23 02/05/24 aerosol inhaler (Ventolin HFA) shortness of breath or wheezing #8.5 grams Previous Rx's ?Medication ?Instructions ?Recorded epinephrine 0.3 mg/0.3 mL 0.3 mg (0.3 mL) IM ONCE #2 ea 02/16/22 injection, auto-injector albuterol sulfate 90 mcg/actuation 2 puff inhalation Q6H PRN 09/27/23 aerosol inhaler (Ventolin HFA) shortness of breath or wheezing #8.5 grams Allergies Allergy/AdvReac Type Severity Reaction Status Date / Time honey bee venom AdvReac Intermediate unknown Uncoded 02/05/24 00:11 General Stated Complaint: Orthopedic SILVIA: 4 Review of Systems Narrative: see HPI Exam Narrative Exam Narrative: General: Alert, non-toxic, well nourished, in no acute distress. Head: Normocephalic, atraumatic Neck: Trachea midline, ?Neck supple. Cardiac: ?RRR, no murmurs appreciated Resp: No respiratory distress. CTAB. Abd: ?Soft, non-distended, nontender Extremities: ?LUE: Left forearm with ~1.5cm area of swelling and tenderness to mid-proximal posterior radial aspect. No bony tenderness at elbow or wrist including snuffbox. No bony tenderness along radius/ulna aside from area of swelling. 2+ radial pulse intact and symmetric. Brisk capillary refill all digits Sensation to light touch intact throughout upper extremity, forearm, hand, all digits Good ROM and strength at elbow, wrist, and all digits LUE. Neurologic: GCS 15. ? Moves all extremities freely against gravity Course Vital Signs Vital signs: Vital Signs Temperature 36.2 C L 02/05/24 00:07 Pulse 87 02/05/24 00:07 Respiratory Rate 18 02/05/24 00:07 Blood Pressure 144/76 H 02/05/24 00:07 Pulse Oximetry 97 02/05/24 00:07 Temperature 36.2 C L 02/05/24 00:07 Temperature Source Skin 02/05/24 00:07 Pulse 87 02/05/24 00:07 Respiratory Rate 18 02/05/24 00:07 Respiratory Effort Normal 02/05/24 00:10 Blood Pressure 144/76 H 02/05/24 00:07 Blood Pressure Position Sitting 02/05/24 00:07 Pulse Oximetry 97 02/05/24 00:07 Oxygen Delivery Method Room Air 02/05/24 00:07 Oxygen Flow Rate 0 02/05/24 00:07 Medical Decision Making 48yo M with hx of asthma presenting for left arm pain after a fall. Was standing on the back of a trailer, fell, hit his left forearm on the side rail. Pain to his left forearm; denies pain or injury elsewhere. Did not strike his head. Vital signs reassuring on arrival; swollen area to left forearm on exam with no clear bony tenderness. No neurovascular compromise, full strength and ROM throughout elbow/wrist/hand/digits. Given tylenol and toradol for pain. No indication for labs or CT imaging. Plain films elbow, forearm, wrist independently reviewed, no displaced fracture on my view. Awaiting [facility] reads. Patient subsequently requesting of nursing to leave the department for a minute and was advised that this was not possible, after which he stated he wanted to 'sign himself out'. Left the department, regrettably did not wait for further evaluation and I was not able to speak to the patient prior to his elopement. After pt departure [facility] subsequently read plain films as negative. Imaging Data Radiologic Study: Imaging: X-Ray Quality:SDOH Health Related Social Needs: No Data to Display PFSH All Active Problems (Updated 02/05/24 @ 01:41 by Barbara Schwartz MD) Fall (Acute) Arm pain (Acute) Alcoholism (Acute) Left knee injury (Acute) Finger pain (Acute) Lower urinary tract symptoms (LUTS) (Acute) Right shoulder pain (Acute) Tachycardia, paroxysmal (Acute) Shortness of breath on exertion (Acute) Smoker (Acute) 2 pack/day Lower back pain (Acute) Medical History Depression Kidney stone Family History Mother No problems noted. Father , 67 Cancer Heart disease Sister Cancer Depression Daughter Depression Asthma Daughter Depression Maternal Grandfather , 69 Stroke Paternal Grandfather , 50's Stroke Maternal Grandmother , 80's No problems noted. Paternal Grandmother , 30's No problems noted. Social History Smoking/Tobacco Use Status: Current every day Tobacco Type: cigarettes Tobacco: How many years used: 25 Quit status: not considering quitting Second Hand Exposure: Yes Smoking risk assessment performed?: Yes Alcohol Intake: current Alcohol Intake frequency: a few times a week Alcohol type: beer Drug use: Never Substance use type: does not use Caregiver/Support person: Yes Household members: spouse and children Housing: house Communication Needs: Hard of Hearing Do you need help understanding health information?: Often Pets and animals: Yes Pets and animals: dog(s) Sexually active: Yes Do you think of yourself as: straight/heterosexual Current gender identity: male What is your relationship status?: How often do you talk on the phone with friends or family?: three or more times per week How often do you get together with friends or relatives?: three or more times per week How often do you attend anglican or protestant services?: decline to answer Do you belong to any clubs or organized social groups?: no Panel score (0-1 are the most socially isolated patients): 2 What type of physical activity do you participate in: walking Duration: > 90 minutes/day Frequency: daily Hodan/Restorationist: No preference Seatbelt use: never Helmet use: Yes Helmet use: always Drive 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
[2024-02-05] MEDS: Ketorolac 15 MG/ML VIAL IM (01:18)
[2024-02-05] MEDS: Acetaminophen 500 MG TAB 1000 MG PO (01:18)
--- NOTE | 2024-02-05 02:21 | DI.[facility]_ITS ---
PROCEDURE INFORMATION: Exam: XR Left Wrist Exam date and time: 02/05/2024 12:21 AM Age: 48 years old Clinical indication: Injury or trauma; Blunt trauma (contusions or hematomas); Wrist; Left; Injury details: Fall, forearm deformity TECHNIQUE: Imaging protocol: Radiologic exam of the left wrist. Views: 3 or more views. COMPARISON: MR UPPER JOINT LT WO 03/26/2023 8:05 AM FINDINGS: Bones/joints: Normal. Soft tissues: Normal. IMPRESSION: No acute findings. Dictated and Authenticated by: Adrian Somers MD. Ordering:PRATEEK Jimenez MD
--- NOTE | 2024-02-05 02:21 | DI.[facility]_ITS ---
PROCEDURE INFORMATION: Exam: XR Left Forearm Exam date and time: 02/05/2024 12:23 AM Age: 48 years old Clinical indication: Injury or trauma; Blunt trauma (contusions or hematomas); Arm, lower; Left; Injury details: Fall, forearm deformity TECHNIQUE: Imaging protocol: Radiologic exam of the left forearm. Views: 2 views. COMPARISON: MR UPPER JOINT LT WO 03/26/2023 8:05 AM FINDINGS: Bones/joints: Normal. Soft tissues: Normal. IMPRESSION: No acute findings. Dictated and Authenticated by: Adrian Somers MD. Ordering:PRATEEK Jimenez MD
--- NOTE | 2024-02-05 02:23 | DI.[facility]AD_ITS ---
PROCEDURE INFORMATION: Exam: XR Left Elbow Exam date and time: 02/05/2024 12:24 AM Age: 48 years old Clinical indication: Injury or trauma; Blunt trauma (contusions or hematomas); Elbow; Left; Injury details: Fall, forearm deformity TECHNIQUE: Imaging protocol: Radiologic exam of the left elbow. Views: 3 or more views. COMPARISON: MR UPPER JOINT LT WO 03/26/2023 8:05 AM FINDINGS: Bones/joints: Normal. Soft tissues: Normal. IMPRESSION: No acute findings. Dictated and Authenticated by: Adrian Somers MD. Ordering:PRATEEK Jimenez MD
== END 2024-02-05 05:07 | disposition left against medical advice (07) ==
PROVIDERS: Emergency Provider Student in an Organized Health Care Education/Training Program; PCP Nurse Practitioner Family
DX: M79.602 Pain in left arm (principal); F10.90 Alcohol use, unspecified, uncomplicated; F17.200 Nicotine dependence, unspecified, uncomplicated; W01.198A Fall on same level from slipping, tripping and stumbling with subsequent striking against other object, initial encounter
CPT/HCPCS: 96372; 99284; 73080; 73090; 73110; 99283; J1885

== ENCOUNTER 2024-04-18 08:05 | Emergency (ER) | payer MEDICAID, SELFPAY ==
[2024-04-18 08:08] VITALS: BP 118/77; PULSE 101; RESP 17; TEMP 37.1; O2SAT 95
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
--- NOTE | 2024-04-18 08:15 | DI.RAD_ITS ---
Exam(s) XR KNEE RT 3V AP,LAT,MIRI XR FEMUR RT EXAM: XR FEMUR RT CLINICAL HISTORY: r prox femur pain. TECHNIQUE: 2D digital imaging was performed. AP and lateral views of the femur. Three views of the knee and this. COMPARISON: CR XR KNEE RT 3V AP,LAT,MIRI from 04/18/2024 FINDINGS: BONES: No acute fracture is present. No bony destructive lesion is seen. JOINTS: No joint space narrowing. There is spurring at the acetabula. Subchondral cyst seen in the superior acetabula. Mild spurring at the margin of the femoral neck. No significant degenerative ch anges in the knee. No knee joint effusion. SOFT TISSUE: Normal. IMPRESSION: Unremarkable radiographs of the right femur and knee. DATA REPOSITORY: RADIATION DOSE DELIVERED:
[2024-04-18] MEDS: Acetaminophen 500 MG TAB 1000 MG PO (08:49)
[2024-04-18] MEDS: Ibuprofen 600 MG TAB PO (10:20)
[2024-04-20 08:32] VITALS: PULSE 93
--- NOTE | 2024-04-20 08:33 | NUR.NOTE ---
Nursing Note: Pt nurse reported that his heart rate had dropped to 93 upon discharge but she forgot to document it. HR documented per nurse observation.
== END 2024-04-18 10:27 | disposition home or self-care (01) ==
PROVIDERS: Emergency Provider Emergency Medicine; PCP Nurse Practitioner Family
DX: S70.11XA Contusion of right thigh, initial encounter (principal); V86.09XA Driver of other special all-terrain or other off-road motor vehicle injured in traffic accident, initial encounter; F17.210 Nicotine dependence, cigarettes, uncomplicated
CPT/HCPCS: 73552; 73562